=== PATIENT | female | born 1950 | race Caucasian/White ===

== ENCOUNTER 2024-01-14 07:36 | Emergency (ER) | payer MEDICARE, MEDICAID, SELFPAY ==
[2024-01-14 07:52] VITALS: BP 157/79; PULSE 46; RESP 18; TEMP 36.8; O2SAT 98; BMI 30.6
--- NOTE | 2024-01-14 07:55 | XR_ITS ---
WS: [id number] Exam: XR ankle LT min 3V* [id number] Date/Time of Exam: 01/14/2024 8:08 AM Reason For Exam: pain No acute fracture or dislocation. The ankle mortise is equidistant. Normal soft tissues. XR/XR ankle LT min 3V* [id number] IMPRESSION: 1. No acute fracture or other significant finding.
[2024-01-14 09:56] VITALS: PULSE 51; O2SAT 98
--- NOTE | 2024-01-14 11:16 | PC.NURSE ---
PT REFUSED CRUTCHES. DR. YEAGER NOTIFIED, WALKER ORDER SENT WITH PATIENT.
[2024-01-14 11:17] VITALS: BP 136/88; PULSE 55; O2SAT 98
--- NOTE | 2024-01-14 13:05 | ED_ITS ---
HPI - Extremity Problem General: Chief complaint: Extremity Problem,Nontraumatic Stated complaint: Lt ankle Time Seen by Provider: 01/14/24 07:54 History of Present Illness: 73-year-old female presents emergency ro om complaining of left ankle pain started 3 days ago. She does not recall any injury or trauma she said she bent over her ankle felt a weird and then progressively worsened. She points to the most painful point being at the insertion of the Achilles tendon. Related Data Previous Rx's Medication Instructions Recorded diclofenac sodium 75 mg 75 mg PO Q12H PRN pain #20 tabs 01/14/24 tablet,delayed release Review of Systems Musc: Reports: extremity pain Physical Exam 2 Extremity: OTHER: Examination of the left ankle no joint effusion no redness no induration. Pain with palpation of the Achilles insertion. Achilles is palpably intact however proximally. No defects are noted on exam. Pain with attempts at plantarflexion pain localizes to the Achilles insertion. Course Vital Signs: Vital signs: Vital Signs Temperature 98.2 F 01/14/24 07:52 Pulse Rate 55 L 01/14/24 11:17 Respiratory Rate 18 01/14/24 07:52 Blood Pressure 136/88 01/14/24 11:17 Pulse Oximetry 98 01/14/24 11:17 Oxygen Delivery Me thod Room Air 01/14/24 09:56 MDM - Extremity (Nontraumatic) Medical Decision Making Suspect patient strained or even partially torn the Achilles tendon. Will place in a posterior splint and nonweightbearing and refer her to podiatry. Lab Data Radiology Impressions Ankle X-Ray 01/14/24 07:55 IMPRESSION: 1. No acute fracture or other significant finding. All radiology interpretation(s) finalized by discharge Discharge Plan Discharge Patient Disposition: Home Clinical Impression: Strain of left Achilles tendon, initial encounter Condition: Stable Prescriptions: New diclofenac sodium 75 mg tablet,delayed release (DR/EC) 75 mg PO Q12H PRN (Reason: pain) Qty: 20 0RF Discharge Orders: Discharge ED (Routine); Ordered 01/14/24 Ordered By: Lalo Masters Other Ambulatory Orders: DME: Walker (Order) Location: None Selected Ordered By: Lalo Masters Discharge Diet: Usual diet Discharge Activity: Resume usual activity Patient Instructions: Opioid Safety, Pain Management Activity Restrictions/Additional Instructions: Thank you for choosing [facility] for your healthcare needs today. It is very important that you follow up as instructed or that you return to the Emergency Department should you have concerns or if your condition changes or worsens in any way. Recommend nonweightbearing on the left foot leave the splint in place follow-up with podiatry, senior case manager will make arrangements for the appointment. Coding Level of Care Code ED Workday Manager for Christian Jorgensen
--- NOTE | 2024-01-14 17:52 | DCPLANNER ---
message sent to podiatry for er f/u
== END 2024-01-14 11:20 | disposition home or self-care (01) ==
PROVIDERS: Emergency Provider Family Medicine
DX: S86.012A Strain of left Achilles tendon, initial encounter (principal)
CPT/HCPCS: 73610; 99283

== ENCOUNTER 2024-01-17 16:35 | Outpatient (CLI) | payer MEDICARE, MEDICAID, SELFPAY | END 2024-01-17 16:36 | disposition home or self-care (01) | LOC: SPT 16:35 | PROVIDERS: Visit Provider Podiatrist Foot & Ankle Surgery | DX: Z46.89 Encounter for fitting and adjustment of other specified devices (principal); S86.10 Unspecified injury of other muscle(s) and tendon(s) of posterior muscle group at lower leg level; X58.XXXD Exposure to other specified factors, subsequent encounter | CPT/HCPCS: 97760; L4361 ==

== ENCOUNTER 2024-01-28 14:09 | Outpatient (CLI) | payer MEDICARE, MEDICAID, SELFPAY ==
--- NOTE | 2024-01-28 14:30 | MRR_ITS ---
PROCEDURE INFORMATION: Exam: MR Left Lower Extremity Joint Without Contrast; Ankle Exam date and time: 01/28/2024 2:31 PM Age: 73 years old Clinical indication: Patient HX: Left ankle pain, eval for achilles rupture; Additional info: Eval for achilles rupture on left, surgical planning if it is a rupture TECHNIQUE: Imaging protocol: Magnetic resonance imaging of the left lower extremity without contrast. Exam focused on the ankle. COMPARISON: CR XR ankle LT min 3V* [id number] 01/14/2024 8:10 AM FINDINGS: Bones/joints: Tibiotalar and subtalar articulations are intact. Lateral, medial and posterior malleoli are intact. Trace tibiotalar and subtalar joint effusions. Moderate midfoot osteoarthritis with marginal osteophytes and subchondral marrow edema. Small talonavicular joint effusion. LIGAMENTS: Distal tibiofibular syndesmosis: Intact. Anterior talofibular ligament: Intact. Posterior talofibular ligament: Intact. Calcaneofibular ligament: Intact. Deltoid ligament complex: Intact. TENDONS: Flexor tendons of foot: Intact. Tibialis posterior tendon: Intact. Mild tenosynovitis. Peroneal tendons: Partial thickness tear of the inframalleolar peroneus brevis tendon with mild tenosynovitis. Peroneus longus tendon is intact. Extensor tendons of foot: Intact. Tibialis anterior tendon: Intact. Achilles tendon: Mild tendinosis with low-grade intrasubstance tear. No high-grade tear or rupture. Mild retrocalcaneal bursitis. There is edema of the posterior fat pad. Tarsal canal (Sinus tarsi): Sinus tarsi fat is preserved. Tarsal tunnel: Unremarkable. Soft tissues: Diffuse soft tissue edema without fluid collection or hematoma. Plantar fascia: Thickening of the central cord of the plantar fascia with a 1 cm intrasubstance heterotopic ossification compatible with sequela of chronic partial tear. Very mild fascial edema. MR/MR ankle LT wo con* [id number] IMPRESSION: 1. No evidence of high-grade tear or rupture of the Achilles tendon. There is mild tendinosis with a low-grade intrasubstance tear and mild retrocalcaneal bursitis. 2. Partial-thickness tear of the inframalleolar peroneus brevis tendon. 3. 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 4. Moderate midfoot osteoarthritis. 5. Diffuse soft tissue edema without discrete fluid collection or hematoma.
== END 2024-01-28 14:10 | disposition home or self-care (01) ==
LOC: RAD 14:09
PROVIDERS: Visit Provider Podiatrist Foot & Ankle Surgery
DX: S86.312A Strain of muscle(s) and tendon(s) of peroneal muscle group at lower leg level, left leg, initial encounter (principal); S96.812A Strain of other specified muscles and tendons at ankle and foot level, left foot, initial encounter; M19.072 Primary osteoarthritis, left ankle and foot; R22.42 Localized swelling, mass and lump, left lower limb; X58.XXXA Exposure to other specified factors, initial encounter
CPT/HCPCS: 73721

== ENCOUNTER → 2024-01-31 06:54 | Outpatient (BNVA) | payer MEDICARE, MEDICAID, SELFPAY | PROVIDERS: Visit Provider Podiatrist Foot & Ankle Surgery | DX: M79.672 Pain in left foot (principal); S86.012D Strain of left Achilles tendon, subsequent encounter; R03.0 Elevated blood-pressure reading, without diagnosis of hypertension; M72.2 Plantar fascial fibromatosis; X58.XXXD Exposure to other specified factors, subsequent encounter | CPT/HCPCS: 99213 ==

== ENCOUNTER 2024-02-06 07:37 | Outpatient (RCR) | payer MEDICARE, MEDICAID, SELFPAY | END 2024-02-14 23:59 | disposition home or self-care (01) | LOC: SPT 07:37 | PROVIDERS: Visit Provider Podiatrist Foot & Ankle Surgery | DX: S86.019D Strain of unspecified Achilles tendon, subsequent encounter (principal); X58.XXXD Exposure to other specified factors, subsequent encounter | CPT/HCPCS: 97110; 97161 ==

== ENCOUNTER 2024-02-15 06:00 | Outpatient (RCR) | payer MEDICARE, MEDICAID, SELFPAY | END 2024-03-15 23:59 | disposition home or self-care (01) | LOC: SPT 06:00 | PROVIDERS: Visit Provider Podiatrist Foot & Ankle Surgery | DX: S86.019D Strain of unspecified Achilles tendon, subsequent encounter (principal); X58.XXXD Exposure to other specified factors, subsequent encounter | CPT/HCPCS: 97110 ==

== ENCOUNTER → 2024-03-12 06:49 | Outpatient (BNVA) | payer MEDICARE, MEDICAID, SELFPAY | PROVIDERS: PCP Nurse Practitioner Family; Visit Provider Podiatrist Foot & Ankle Surgery | DX: S86.012D Strain of left Achilles tendon, subsequent encounter (principal); X58.XXXD Exposure to other specified factors, subsequent encounter | CPT/HCPCS: 99213 ==

== ENCOUNTER → 2025-03-18 10:40 | Outpatient (BNVA) | payer MEDICARE, MEDICAID, SELFPAY | PROVIDERS: PCP Nurse Practitioner Family; Visit Provider Nurse Practitioner | DX: S69.92XA Unspecified injury of left wrist, hand and finger(s), initial encounter (principal); W19.XXXA Unspecified fall, initial encounter; M18.12 Unilateral primary osteoarthritis of first carpometacarpal joint, left hand | CPT/HCPCS: 73110 ==